=== PATIENT | female | born 2000 | race Caucasian/White ===

== ENCOUNTER 2021-03-01 09:57 | Outpatient (RCR) | payer BC, SELFPAY ==
--- NOTE | 2021-03-01 10:15 | BH.SGPN.GN ---
Behaviors/Verbalizations/Mental Status: []Client alert and oriented, casually dressed and groomed. Eye contact good. Motor activity appropriate. Speech within normal limits. Affect congruent, mood dysthymic. Thoughts linear, logical, no signs of hallucinations or delusions. Client Response/Progress/Benefit: []Client was an engaged participant AEB listening attentively to others, taking notes, and staying engaged with group activity. Connected with the topic of pitfalls and helped the group discuss barriers that keep them from choosing a healthier path to mental wellness such as pitfalls. Group worked together to identify examples of personal pitfalls which included; avoidance behaviors, self-comparison, isolation, personalizing, catastrophizing, all or nothing thinking, and not meeting high expectations. Client benefited from group with increased understanding of impact personal pitfalls can have on mental health. Client's first day in IOP. Client will continue IOP to increase healthy coping skills, improve daily functioning and prevent decompensation.
--- NOTE | 2021-03-01 11:15 | BH.SGPN.GN ---
Behaviors/Verbalizations/Mental Status: []Client alert and oriented, neatly dressed and groomed. Eye contact good. Motor activity appropriate. Speech within normal limits. Affect constricted, mood anxious and depressed. Thoughts linear, logical, no signs of hallucinations or delusions Client Response/Progress/Benefit: []Client receptive of session, engaged throughout AEB client actively listening and contributing to discussion, as well as taking notes. Client completed worksheet identifying personal pitfalls impacting mental health progress. Client identified the following pitfalls: no self-recognition, seeking external validation too much, inappropriate guilt, and emotional reactivity. Group learned different coping skills to help manage pitfalls. Client selected no self-recognition as the pitfall client wants to overcome. Client plans to work on this by keeping track of small daily wins and reflecting on larger accomplishments she had in life. Benefited from identifying personal pitfalls and strategies to overcome these pitfalls. Will continue IOP tx to prevent decompensation, increase emotional regulation skills, and reduce negative thinking patterns. Narrative Note: []
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
--- NOTE | 2021-03-01 14:38 | BH.MTP ---
Master Treatment Plan - Patient Information Program Physician:: Dr. Kelly Sanford Primary Therapist:: BECKA Higgins - Psychiatric Diagnoses Psychiatric Diagnoses:: 1. Major depressive disorder, recurrent, severe without psychosis. 2. Attention deficit disorder Diagnosis Code(s):: F 33.2 - Estimated LOS Estimated LOS (in weeks):: 6 Problem/Goal #1 - Problem/Goal #1 Stated Goal:: Client will reduce depressive symptoms, feelings of hopelessness/worthlessness, apathy, and low energy due to Major Depressive Disorder through Intensive Outpatient Program. Description of Barriers: Poor support at home, distorted thinking patterns, and self-report of reassurance seeing behaviors may impact ability to make consistent progress in tx Functional Impact: The patient is a 20-year-old female with a history of ADHD who was referred to the [facility] behavioral health IOP program by a friend who previously completed the program. The patient is currently living at home with her parents after she dropped out of college where she had been a freshman majoring in media production. The patient says she took a semester off from college due to worsening symptoms of depression causing an inability to function well at school or at home. 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 Reports that acknowledging her childhood trauma has been the primary catalyst for a majority of her mental health sx and increased difficulties in functioning t baseline. Reports she has attempted to process this with her parents who have been unreceptive. The patient called the crisis line 2 weeks ago because she had suicidal ideation. She said her grades were dropping because she had stopped doing homework and attending class. At time of admission, pt endorsing sadness, crying spells, low motivation and concentration, apathy, anhedonia, hopelessness, purposelessness, and worthlessness, as well as decreased appetite. Reports increased anxiety about the future as well as poor relationships with supports. Reports current sx are impeding ability to function at baseline, complete social, occupational, and educational responsibilities. - Objectives Objective #1 Stated Objective: Client will identify 2-3 cognitive distortions that lead to mood dysregulation and learn 2-3 ways to manage these thoughts to improve mood stability. Interventions: Therapist will assist client in identifying, challenging, and replacing dysfunctional thoughts with positive, more realistic thoughts. Therapist will use CBT and DBT techniques to help client gain awareness of thinking errors and learn how to more effectively handle negative thoughts that reinforce unhealthy coping skills. Discharge Criteria: Client will report reduced depression and improved self-talk by identifying at least 2 distortions that reinforce negative thinking, as well as implement at least 2 strategies to challenge and replace these distorted thoughts. Target Date: 04/12/21 Review Date: 03/29/21 Objective #2 Stated Objective: Client will learn and utilize 2-3 healthy coping strategies to better manage depressive and mood symptoms as shown by reduced DSM-5 scores. Interventions: Through group and individual sessions, therapist will help client identify triggers and warning signs of depression and emotional dysregulation including emotional, physical, and behavioral changes. Therapist will teach client various coping skills to manage symptoms and give tangible resources to use to regulate emotions. Therapist will use cognitive restructuring techniques and help client gain awareness of negative thoughts that reinforce depressive cycles. Discharge Criteria: Pt will be able to identify at least 2 warning signs/triggers for mood dysregulation and consistently apply at least 2 healthy coping skills for improved mood stability and reduction in depression. Target Date: 04/12/21 Review Date: 03/29/21 Problem/Goal #2 - Problem/Goal #2 Stated Goal:: Stabilize anxiety level while increasing ability to function on daily basis AEB by reduction in DSM 5 Cross-cutting outcome measurement through Intensive Outpatient Services. Description of Barriers: Poor support at home, distorted thinking patterns, and self-report of reassurance seeing behaviors may impact ability to make consistent progress in tx Functional Impact: The patient is a 20-year-old female with a history of ADHD who was referred to the [facility] behavioral health IOP program by a friend who previously completed the program. The patient is currently living at home with her parents after she dropped out of college where she had been a freshman majoring in media production. The patient says she took a semester off from college due to worsening symptoms of depression causing an inability to function well at school or at home. 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 Reports that acknowledging her childhood trauma has been the primary catalyst for a majority of her mental health sx and increased difficulties in functioning t baseline. Reports she has attempted to process this with her parents who have been unreceptive. The patient called the crisis line 2 weeks ago because she had suicidal ideation. She said her grades were dropping because she had stopped doing homework and attending class. At time of admission, pt endorsing sadness, crying spells, low motivation and concentration, apathy, anhedonia, hopelessness, purposelessness, and worthlessness, as well as decreased appetite. Reports increased anxiety about the future as well as poor relationships with supports. Reports current sx are impeding ability to function at baseline, complete social, occupational, and educational responsibilities. - Objectives Objective #1 Stated Objective: Client will identify 2-3 cognitive distortions that lead to rumination and learn 2-3 ways to manage these thoughts to better manage anxiety Interventions: Through individual and group counseling will provide education on the most common cognitive distortions and teach client the connection between thoughts, emotions, and feelings. Therapist will assist client in identifying, challenging, and replacing dysfunctional thoughts with positive, more realistic thoughts. Discharge Criteria: Will be able to identify 2-3 frequently used cognitive distortions and ways to challenge or reframe . Target Date: 04/12/21 Review Date: 03/29/21 Objective #2 Stated Objective: Pt will decrease anxious symptoms AEB pt?s score on the DSM 5 cross-cutting measure improve pt?s daily functioning. Interventions: Through groups and individual therapy, pt will be provided education about anxiety?s impact on body and common physiological reaction to anxiety. Therapist will teach pt appropriate breathing techniques and build healthy coping skills to manage daily anxieties. Aid client in identifying and challenging distorted thoughts that cause rumination and increased anxiety. Discharge Criteria: Pt will have met this goal when pt?s score on the DSM 5 cross cutting measure for anxiety has been decreased and per pt?s report daily functioning has improved. Target Date: 04/12/21 Review Date: 03/29/21
--- NOTE | 2021-03-02 09:05 | BH.SGPN.GN ---
Behaviors/Verbalizations/Mental Status: []Eye contact is good. Motor activity is appropriate. Appearance is casual. Speech is appropriate. Mood is anxious. Affect is congruent. Thoughts are linear and logical. No evidence of psychosis. Reviewed daily symptom tracker sheet with no reports of suicidal ideations, plan, or intent. Client Response/Progress/Benefit: []Client was engaged throughout group session. Client reported a stressor of moving home from college and back home with her parents. Shared her parents are not as supportive as her friends back at school. Client appeared to benefit from group discussion regarding acceptance and coping with unsupportive supports. Client identified the benefits of moving home, as it will allow her to focus on herself. Will continue IOP treatment to increase depression management skills to aid client in increasing functioning. Narrative Note: []
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
--- NOTE | 2021-03-02 10:10 | BH.SGPN.GN ---
Behaviors/Verbalizations/Mental Status: []Client alert and oriented, casually dressed and groomed. Eye contact good. Motor activity appropriate. Speech within normal limits. Affect constricted, mood dysthymic. Thoughts linear, logical, no signs of hallucinations or delusions. Client Response/Progress/Benefit: []Client engaged during session AEB client contributing thoughts throughout discussion and completing worksheet. Connected with discussion on crisis and how coping with external crises by using unhealthy coping skills could result in a personal crisis. Able to give examples of unhealthy coping skills people use to manage crisis. Group reflected on the importance of having awareness of personal warning signs to prevent reaching crisis point. Group identified potential warning signs for crisis and client completed the personal warning signs worksheet. Client identified personal crisis warning signs to include: unusual drop in functioning, loss of interest, and feeling disconnected. Client benefited by increasing awareness of what leads to crisis and personal warning signs. Client will continue IOP tx to prevent decompensation, improve emotional regulation skills, and improve daily functioning. Narrative Note: []
--- NOTE | 2021-03-02 11:10 | BH.SGPN.GN ---
Behaviors/Verbalizations/Mental Status: []Client alert and oriented, casually dressed and groomed. Eye contact fair. Motor activity appropriate. Speech within normal limits. Affect constricted. Mood dysthymic. Thoughts linear, logical, no signs of hallucinations or delusions. Client Response/Progress/Benefit: []Client responded well to session as evidenced by client listening attentively to others and providing strategies during discussion. Client identified her warning signs for crisis and gained further awareness of earliest warning signs. Client created a crisis action plan to help client better manage warning signs for crisis. Client?s action plan for unusual drop in functioning included: setting small goals about cleaning sections of her room, use opposite action to get out of bed, set realistic expectations and identify wins. Client appeared to benefit from creating a crisis action plan and increasing self-awareness. Client to continue IOP tx to increase healthy coping, improve daily functioning and prevent decompensation.
[2021-03-02 12:05] VITALS: BP 129/84; PULSE 64
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
--- NOTE | 2021-03-02 13:12 | BH.DR.ITP ---
Initial Treatment Plan Patient Information Visit Information: ADMISSION DATE: EXPECTED LOS: 4-6 weeks Problems/Symptoms Problem #1:: Depression Symptom:: Sadness, anhedonia, biological disruption of sleep and appetite, low energy, decreased concentration, hopelessness, worthlessness, passive thoughts of Problem #2:: Anxiety Symptom:: Worry, rumination
--- NOTE | 2021-03-03 09:00 | BH.SGPN.GN ---
Behaviors/Verbalizations/Mental Status: []Pt eye contact fair, casually dressed, motor activity appropriate, speech normal rate and tone, mood euthymic, congruent affect, thoughts linear and intact, no evidence of delusions or hallucinations. Reviewed client?s symptom tracker, no signs of suicidal ideation, plan, or intent as of today. Client Response/Progress/Benefit: [] Pt responded well to session AEB listening attentively to group, providing feedback and sharing thoughts and feelings. Pt stated yesterday was stressful because she catastrophized that she had covid due to having a cough. Pt stated she reached out to her father for help, asking him to get her a covid test. Pt reported her father was being pushy and wouldn't get the test until she did what he wanted. Pt stated a mental health win was being able to refrain from responding negatively to her father. Pt reported she did get a covid test and it was negative. Pt recognizes she was likely catastrophizing because she was worried she'd have to cancel her trip to [place]. Pt identified positive as going to [place] for the next 5 days for a friend's wedding. Pt seemed to benefit from support from peers. Pt to continue IOP to increase healthy coping, challenge distorted thoughts and prevent decompensation. Narrative Note: []
--- NOTE | 2021-03-03 10:06 | BH.SGPN.GN ---
Behaviors/Verbalizations/Mental Status: []Eye contact is good. Motor activity is appropriate. Appearance is casual. Speech is Appropriate. Mood is euthymic. Affect is flat. Thoughts are linear and logical. No evidence of psychosis Client Response/Progress/Benefit: []Pt was a passive participant in group discussion, mostly taking notes and attentively listening. Participated in a short activity about automatic thoughts and shared that mood and past experiences can impact automatic thoughts. Group was primarily educational; therapist introduced and gave examples of the most common cognitive distortions. Benefited from education and increased awareness of cognitive distortions and the role that they play our behaviors and emotions. Pt reported connecting with distortions such as all or nothing thinking, shoulds, and mind-reading. Will continue IOP tx to prevent decompensation, improve emotional regulation skills, and increase mood stability. Narrative Note: []
--- NOTE | 2021-03-03 11:16 | BH.SGPN.GN ---
Behaviors/Verbalizations/Mental Status: []Eye contact is good. Motor activity is appropriate. Appearance is casual. Speech is Appropriate. Mood is depressed, anxious. Affect is congruent. Thoughts are linear and logical. No evidence of psychosis. Client Response/Progress/Benefit: []Pt was an active participant, taking notes and providing input throughout group discussion and activity. Attentive during psychoeducation on cognitive distortions not discussed in previous group and shared several examples of distortions she struggles with. Pt indicated connecting with distortions of disqualifying the positives, personalization, and overgeneralization. Shared personal example of stuggling with should statements and connected this to increased pressure she places on herself. Pt was an actively engaged participant in Cognitive Distortions Jeopardy, providing some input and suggestions to small group. Utilized notes from psychoeducation on cognitive distortions to assist peers in correctly answering questions. Expressed benefitting from challenging herself to better identify the distortions in the moment. Experiential activity was beneficial as it provided a way for patient to review notes and handouts during psychoeducation to answer questions for the game. Will continue in [facility] tx to further improve understanding of mental health symptoms and healthy coping skills for better management of symptoms, reduce depression and avoidance, and further improve ability to manage stressors impacting ability to function at baseline. Narrative Note: []
--- NOTE | 2021-03-08 09:05 | BH.SGPN.GN ---
Behaviors/Verbalizations/Mental Status: [] Eye contact is good. Motor activity is appropriate. Appearance is casual. Speech is Appropriate. Mood is euthymic. Affect is full. Thoughts are linear and logical. No evidence of psychosis. Reviewed daily check in sheet and no reports of suicidal ideations or intent Client Response/Progress/Benefit: [] Pt was an active participant in group discussion. Attentive. Daily symptom tracker notes 5 for depression and 2/5 for anxiety. Emotion for today is thankful. Mental health wins included managing anxiety and stress related to recent trip. Went to a wedding over the weekend which required her to fly. Overall she managed the anxiety well and found the wedding to be beneficial to her mental health. Continued conflict with her parents and overall depression continue to impact functioning. She holds strong resentments towards her parents and their previous actions and believes they are unwilling to acknowledge how their actions impacted her. Patient states i want to hug and connect with my mom however its hard. This is significantly impacting her depression and causing daily rumination. All I think about is my mental health. Progress noted over the weekend. Benefited from group support, encouragment, and feedback. Will continue in IOP to maintain safety, increase health coping, and prevent decompensation. Narrative Note: []
--- NOTE | 2021-03-08 10:20 | BH.SGPN.GN ---
Behaviors/Verbalizations/Mental Status: []Client alert and oriented, disheveled appearance. Eye contact good. Motor activity appropriate. Speech within normal limits. Affect constricted, mood calm. Thoughts linear, logical, no signs of hallucinations or delusions. Client Response/Progress/Benefit: []Pt was an active participant in group discussions and activity. Attentive during psychoeducation. Along with peers provided insight into topics discussed which included; What is social support? Why is social support important? What are the benefits of using our supports? How does a lack of strong social supports impact our mental health and symptom management? Pt reported having a healthy support system can help a person celebrate wins, but pt reports she struggles when ?my brain tells me I don?t need support.? Participated in activity and was able to connect the activity to the topic of creating and maintaining a balance of social supports. Benefited from increased awareness of the benefits to a balanced social support and barriers to utilizing social support. Progress noted in pt?s consistent attendance. Will continue in IOP to prevent decompensation, improve emotional regulation skills, and learn how to manage ongoing stressors in healthier ways. Narrative Note: []
--- NOTE | 2021-03-08 11:18 | BH.SGPN.GN ---
Behaviors/Verbalizations/Mental Status: []Client alert and oriented, casually dressed and groomed. Eye contact good. Motor activity appropriate. Speech within normal limits. Affect congruent, mood anxious, depressed. Thoughts linear, logical, no signs of hallucinations or delusions. Client Response/Progress/Benefit: []Client remained an active participant throughout AEB contributing to discussion, providing supportive feedback, and taking notes throughout. Client participated in the group activity highlighting the various barriers to effectively utilizing supports and strategies for improving support. Participated in discussion of the 5 ways our supports can support us (emotional, tangible, affirmational, network/belonging, and instructional) and the group listed examples for all types. Discussed realizing she had previously expected her support people to provide her with each of the types of support rather than asking for specific types of support from different support people. Client reports wanting to work on increasing social supports, noting this will help her engage in activities she enjoys as well as feel more of a part of a community. Client plans to do this by choosing a show to audition for [place] [employer]. Client seemed to benefit from identifying the type of support and how this support will aid in promoting overall mental wellness. Will continue with IOP tx to promote healthy communication and boundaries with supports, improve self-compassion, and prevent decompensation. Narrative Note: []
--- NOTE | 2021-03-09 10:10 | BH.SGPN.GN ---
Behaviors/Verbalizations/Mental Status: [] Eye contact is good. Motor activity is appropriate. Appearance is casual. Speech is Appropriate. Mood is anxious. Affect is congruent. Thoughts are linear and logical. No evidence of psychosis. Client Response/Progress/Benefit: [] Pt was an active participant in group discussion and activity. Attentive during psychoeducation. Pt participated in interactive group discussion in which group defined fixed mindset and provided insight on how a fixed mindset could impact mental health and result in; being closed to new possibilities, focusing only on how things are unfair, could lead to helplessness, could lead to feelings of not being in control, could cause one to feel like a failure, and could cause one to ignore any success. Interacted and worked well with peers in small group. Fixed mindset thoughts that were overheard during activity included; This won't work, this didn't work before, I don't think this matters, Its hard. I'm nervous, this sucks, this is impossible, I'm not good at this, we will fail. Benefited from increased awareness on the role of fixed mindset on mental health. Will continue in IOP to prevent decompensation, increase healthy coping, and improve functioning to return to school. Narrative Note: []
--- NOTE | 2021-03-09 15:33 | BH.MDN ---
Multi-Disciplinary Note - Note 60-min Individual Time Started:: 10:54 Date: 03/09/21 Purpose of session/treatment goals addressed:: To work on goal #1 of client's tx plan. Another goal was to introduce self-care wheel and begin exploring current engagement in interests, hobbies, and other areas of self-care. Eye Contact:: Good Motor Activity:: Appropriate Appearance:: Neat, Casual Speech:: Appropriate Mood:: Anxious, Depressed Affect:: Congruent Thoughts:: Linear, Logical, No evidence of hallucinations/delusions noted Staff Interventions:: thought challenging, motivational interviewing - to identify small self-care goals and barriers, psychoeducation on: - various types of social support roles. Types of self-care, strengths perspective, goal setting - identified two small self-care goals, other - discussed importance of healthy communication when establishing boundaries Client Response:: Client responded well to session, open to meeting with therapist. Client shared she finds the treatment environment to be supportive and has been helping her in improving her ability to self-reflect and gain additional insight into her mental health symptoms and warning signs. Spoke at length about continuing to struggle with obtaining the appropriate level of emotional support in her current environment. Reflected that her expectations of emotional support from her parents may not be what they are capable or willing to provide at this time and gave insight that they can still be supports in other ways. Noted her parents can still provide tangible and networking support. Discussed plans to spend time with her mother this week and would like to establish boundaries to not discuss client?s mental health as she feels this is often a topic often resulting in disagreements and increased tension. Indicated that boundaries have been difficult to establish with her parents in the past as they often become defensive or upset when client attempts to do so. Able to identify alternative sources of emotional support, indicating that her best friend could be a healthy support if she establishes the boundary of having her support not try to ?fix it? or make comparisons to her own experiences when client brings things up to process. Went on to discuss with this therapist the role of herself as an internal support and the importance of self-care in promoting mental health wellness. Client receptive of reviewing the various areas of self-care as described on the ?self-care wheel? and indicated beliefs she is doing well in the area of social self-care. Identified struggling in the various other areas, specifically basic personal hygiene type self-care and engaging in activities she used to enjoy. Discussed wanting to start with the basics by becoming more consistent with washing her face daily and eating healthier meals. 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 Client noted that she is worried the musical will be a trauma trigger for her as it discusses parent/child relationships. Client able to identify that first watching the musical to gain a better understanding of the potential topics would help better inform her decision and reports plans to do so as homework. Risks/Concerns:: None noted, denies any suicidal ideation, plan, or intent as of this date. Progress Toward Goals/Plan:: Client continues to make progress in improving her ability to better understand her personal mental health symptoms and goals. Discussed goals for her relationship with parents as this has been an ongoing trigger and client noted that she may need to work on improved personal acceptance. Discussed ongoing difficulties with her parents not acknowledging client?s trauma. Reports improved socialization with friends but continues to struggle in other areas of self-care. Reports wanting to work on improving her engagement with activities and hobbies she used to find enjoyable. Will continue IOP tx to prevent decompensation, increase application of healthy coping skills, improve self-talk, and boundary setting, as well as continue to improve functioning. Time Stopped:: 11:54
--- NOTE | 2021-03-10 09:08 | BH.SGPN.GN ---
Behaviors/Verbalizations/Mental Status: []Client alert and oriented, casually dressed and groomed. Eye contact good. Motor activity appropriate. Speech within normal limits. Affect congruent, mood euthymic. Thoughts linear, logical, no signs of hallucinations or delusions. Reviewed client?s symptom tracker, denies any suicidal ideation, plan, or intent as of 03/10/21. Future oriented Client responded well to session, attentive and providing supportive feedback throughout. Client reports feeling proud this morning as she was able to accomplish several small self-care goals in the past day. Discussed making efforts to complete small tasks such as wash her face and hand a picture in her room. Noted these are things she typically would put off. Additionally, discussed a win of communicating her emotional support needs and boundaries with a close friend. Noting this had been anxiety provoking but a positive experience. Expressed that she can use this as motivation to communicate conversation boundaries with her mother as they have plans to spend the day together tomorrow. Client progress noted in improved insight into her own support needs. Continued IOP tx recommended to improve consistency of boundaries, continue to promote application of self-care activities, and prevent decompensation. Client Response/Progress/Benefit: [] Narrative Note: []
--- NOTE | 2021-03-10 10:10 | BH.SGPN.GN ---
Behaviors/Verbalizations/Mental Status: [] Eye contact is good. Motor activity is appropriate. Appearance is casual. Speech is Appropriate. Mood is euthymic. Affect is full. Thoughts are linear and logical. No evidence of psychosis. Client Response/Progress/Benefit: [] Pt was an active participant in group activity. Attentive during psychoeducation. Participated in interactive discussion on celebrities who overcame failures to decrease stigma associated with failure. Group then worked together to identify the impact of FOF which can lead to; feeling as if they are not enough, can cause apprehension about trying new things, can lead to staying in toxic and unhealthy situations, self-sabotage, keep one stuck, and prolonged suffering. Pt also participated in and provided insight on what causes or leads to FOF which included; expectations, family dynamics, the environment, status, and our view of ourself. Benefited from increased awareness of the role of FOF on mental health and decision-making. Will continue in IOP to improve functioning to return to school and increase healthy coping skills. Narrative Note: []
--- NOTE | 2021-03-10 11:15 | BH.SGPN.GN ---
Behaviors/Verbalizations/Mental Status: []Client alert and oriented, casually dressed and groomed. Eye contact good. Motor activity appropriate. Speech within normal limits. Affect congruent, mood euthymic. Thoughts linear, logical, no signs of hallucinations or delusions. Client Response/Progress/Benefit: []Client responded well to session, engaged in the experiential activity and attentive throughout group processing. 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 Client able to identify thoughts and behaviors that reinforce personal fear of failure which included: not feeling good enough, not addressing trauma, toxic relationships, and dwelling on the past. Client attentive during discussion of the different strategies to help overcome fear of failure. Identified wanting to work on overcoming not feeling like enough by using opposite action and auditioning for the performance she has been considering. Appeared to benefit from gaining self-awareness and learning strategies to overcome fear of failure. Client will continue IOP tx to improve emotional regulation skills, increase knowledge of healthy coping skills, reduce negative self-talk. Narrative Note: []
== END 2021-03-13 23:59 ==
LOC: BHIOP 09:57
PROVIDERS: Referring Provider Psychiatry & Neurology Psychiatry; Visit Provider Psychiatry & Neurology Psychiatry
DX: F33.2 Major depressive disorder, recurrent severe without psychotic features (principal); F98.8 Other specified behavioral and emotional disorders with onset usually occurring in childhood and adolescence; Z79.899 Other long term (current) drug therapy; Z62.810 Personal history of physical and sexual abuse in childhood; Z62.811 Personal history of psychological abuse in childhood
CPT/HCPCS: S9480; 90834; 90837; 90853

== ENCOUNTER 2021-03-14 09:00 | Outpatient (RCR) | payer BC, SELFPAY ==
[2021-03-14 00:34] VITALS: BP 129/84; PULSE 64
--- NOTE | 2021-03-14 09:00 | BH.SGPN.GN ---
Behaviors/Verbalizations/Mental Status: [] Eye contact is good. Motor activity is appropriate. Appearance is casual. Speech is appropriate. Mood is depressed. Affect is flat. Thoughts are linear and logical. No evidence of psychosis. Reviewed daily symptom tracker sheet with no reports of suicidal ideations, plan, or intent. Client Response/Progress/Benefit: [] Client was engaged throughout group session. Client reported her emotion of the day as ?empty?. 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 be. Client reported reaching out to her support system to cope with these feelings. Client reported being happy and proud with photos that she took and finished editing for a friend for . Progress noted AEB client reporting reaching out to support system, but client continues to report difficulty challenging negative thoughts. Will continue IOP treatment to increase depression management skills to increase client functioning. Narrative Note: []
--- NOTE | 2021-03-14 10:10 | BH.SGPN.GN ---
Behaviors/Verbalizations/Mental Status: []Client alert and oriented, casually dressed and groomed. Eye contact good. Motor activity appropriate. Speech within normal limits. Affect constricted, mood dysthymic. Thoughts linear, logical, no signs of hallucinations or delusions. Client Response/Progress/Benefit: [] Client engaged in session AEB taking notes, contributing to discussion, and providing examples throughout. Client assisted group with identifying benefits of setting boundaries such as improved relationships, reduced anxiety, increased sense of self-respect, and feeling validated. Listened during psychoeducation on different types of boundaries. Client stated struggles with time boundaries, often being late to things. Client seemed to benefit from increased awareness of how boundaries impact mental health and the different types of boundaries there are. Will continue IOP tx improve emotional regulation, challenge distorted thoughts and prevent decompensation.
--- NOTE | 2021-03-14 11:10 | BH.SGPN.GN ---
Behaviors/Verbalizations/Mental Status: []Client alert and oriented, casually dressed and groomed. Eye contact good. Motor activity appropriate. Speech within normal limits. Affect constricted, mood dysthymic. Thoughts linear, logical, no signs of hallucinations or delusions. Client Response/Progress/Benefit: []Client responded well to session AEB listening attentively to peers and providing input. Client engaged in the boundary self-assessment and was attentive during psychoeducation on the different boundary styles. Client stated on the self-assessment she identified she can never say no to others. Client stated she is a people pleaser and also has a fear of missing out so will say yes to things even if not truly interested in event/activity. Able to connect how porous boundaries negatively impact mental health. Client was given a handout on strategies for healthy boundary setting. Will continue IOP tx to improve ability to manage stressful events, challenge distorted thoughts and prevent decompensation.
--- NOTE | 2021-03-15 09:05 | BH.SGPN.GN ---
Behaviors/Verbalizations/Mental Status: [] Eye contact is good. Motor activity is appropriate. Appearance is casual. Speech is Appropriate. Mood is depressed. Affect is flat. Thoughts are linear and logical. No evidence of psychosis. Reviewed daily check in sheet and no reports of suicidal ideations or intent. Client Response/Progress/Benefit: [] Pt was an active participant in group discussion. Attentive. Provided appropriate feedback. Daily symptom tracker notes /5 for depression and 2/5 for anxiety. Emotion for today is unhappy. Tearful at times. Shared I had a difficult day yesterday. Reports that after group on boundaries she has increase awareness which was troubling to her. Insight that awareness is important for change however this led to feeling depressed and urge to isolate. She utilized some mindfulness and acceptance of her emotions, however continue to isolate. Support was helpful and took her out for ice cream which she reports was perfect at that time. She continues to ruminate on her conflict and relationship with her mother stating that she wants a better relationship however cannot get over certain things. Benefited from group support, encouragement, and feedback. Will continue in IOP to prevent decompensation, increase healthy coping, and improving functioning to return to work. Narrative Note: []
--- NOTE | 2021-03-15 10:15 | BH.SGPN.GN ---
Behaviors/Verbalizations/Mental Status: []Client alert and oriented, casually dressed and groomed. Eye contact good. Motor activity appropriate. Speech within normal limits. Affect constricted, mood depressed. Thoughts linear, logical, no signs of hallucinations or delusions. Client Response/Progress/Benefit: []Pt was well engaged in group AEB taking notes, providing input occasionally, and listening attentively throughout. Attentive during psychoeducation and discussed the importance of goal-setting with the group. Group identified potential benefits of having goals to include: to better oneself, increase self-confidence, improve relationships, create better boundaries, and improve mental health. Group also worked together to identify barriers to goal-setting which included; self-doubt, fear of failure, fear of success, and lack of motivation. Pt reported she struggles with fear of failure, fear of success, and negative self-talk. However, pt states she has been working on ?treating my relationship with myself like I would treat any other relationship? and this has helped pt challenge negative self-talk. Benefited from increased awareness of benefits and barriers to goal-setting. Will continue IOP tx to increase mood stability, reduce impulsivity, and gain healthy coping skills. Narrative Note: []
--- NOTE | 2021-03-15 11:18 | BH.SGPN.GN ---
Behaviors/Verbalizations/Mental Status: [] Client alert and oriented, casually dressed and groomed. Eye contact good. Motor activity appropriate. Speech within normal limits. Affect congruent, mood anxious and dysthymic. Thoughts linear, logical, no signs of hallucinations or delusions. Client Response/Progress/Benefit: []Pt was an active participant in group discussions and activities. Engaged in activity. Pt identified a SMART goal for the next week is to: track at least five accomplishments a day for the next week. Pt reported this would benefit her mental health by: encourage me to give myself more credit and help motivate me to finish small tasks. Identified no motivation as a potential barrier to completing this goal. Pt able to identify several solutions that can help overcome identified barriers. Benefited from group by being able to utilize SMART educate to create a goal. Pt to continue IOP to stabilize mood, increase utilization of healthy coping and self-care, as well as prevent decompensation. Narrative Note: []
--- NOTE | 2021-03-15 15:17 | BH.MDN_ITS ---
Multi-Disciplinary Note - Note 60-min Individual Time Started:: 10:54 Date: 03/09/21 Eye Contact:: Good Motor Activity:: Appropriate Appearance:: Neat, Casual Speech:: Appropriate Mood:: Anxious Affect:: Congruent Thoughts:: Linear, Logical, No evidence of hallucinations/delusions noted Staff Interventions:: thought challenging, motivational interviewing - to identify small self-care goals, psychoeducation on: - various types of social support roles. Types of self-care, strengths perspective, goal setting - identified two small self-care goals, other - discussed importance of healthy communication when establishing boundaries Client Response:: Client responded well to session, open to meeting with therapist. Client shared she finds the treatment environment to be supportive and has been helping her in improving her ability to self-reflect and gain additional insight into her mental health symptoms and warning signs. Spoke at length about continuing to struggle with obtaining the appropriate level of emotional support in her current environment. Reflected that her expectations of emotional support from her parents may not be what they are capable or willing to provide at this time and gave insight that they can still be supports in [facility] ways. Noted her parents can still provide tangible and networking support. Discussed plans to spend time with her mother this week and would like to establish boundaries to not discuss client?s mental health as she feels this is often a topic often resulting in disagreements and increased tension. Indicated that boundaries have been difficult to establish with her parents in the past as they often become defensive or upset when client attempts to do so. Able to identify alternative sources of emotional support, indicating that her best friend could be a healthy support if she establishes the boundary of having her support not try to ?fix it? or make comparisons to her own experiences when client brings things up to process. Went on to discuss with this therapist the role of herself as an internal support and the importance of self-care in promoting mental health wellness. Client receptive of reviewing the various areas of self-care as described on the ?self-care wheel? and indicated beliefs she is doing well in the area of social self-care. Identified struggling in the various other areas, specifically basic personal hygiene type self-care and engaging in activities she used to enjoy. Discussed wanting to start with the basics by becoming more consistent with washing her face daily and eating healthier meals. 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 Client noted that she is worried the musical will be a trauma trigger for her as it discusses parent/child relationships. Client able to identify that first watching the musical to gain a better understanding of the potential topics would help better inform her decision and reports plans to do so as homework. Risks/Concerns:: None noted, denies any suicidal ideation, plan, or intent as of this date. Progress Toward Goals/Plan:: Client continues to make progress in improving her ability to better understand her personal mental health symptoms and goals. Discussed goals for her relationship with parents as this has been an ongoing trigger and client noted that she may need to work on improved personal acceptance. Discussed ongoing difficulties with her parents not acknowledging client?s trauma. Reports improved socialization with friends but continues to struggle in other areas of self-care. Reports wanting to work on improving her engagement with activities and hobbies she used to find enjoyable. Will continue IOP tx to prevent decompensation, increase application of healthy coping skills, improve self-talk, and boundary setting, as well as continue to improve functioning. Time Stopped:: 11:54
--- NOTE | 2021-03-16 09:01 | BH.SGPN.GN ---
Behaviors/Verbalizations/Mental Status: []Eye contact is good. Motor activity is appropriate. Appearance is casual. Speech is Appropriate. Mood is dysthymic. Affect is constricted. Thoughts are linear and logical. No evidence of psychosis. Reviewed daily check in sheet and no reports of suicidal ideations or intent. Client Response/Progress/Benefit: []Pt responded well to session AEB pt sharing thoughts and feelings and listening attentively to others. Pt stated she is having a rough day. Pt reported yesterday she accomplished her goal from group of scheduling appointments she had been avoiding for a long time. Pt reported she was very proud of herself and told her dad about her accomplishments. Pt stated her dad crushed me when he told her that making appointments wasn't a hard thing. Pt expressed frustration that she was trying to connect with her dad but was let down. Pt stated she did go visit her best friend which helped improve her mood. Progress could be hindered by pt's mood dependent on external situations. Pt to continue IOP to improve daily functioning, challenge distorted thoughts and prevent decompensation. Narrative Note: []
--- NOTE | 2021-03-16 09:06 | BH.MDN_ITS ---
Multi-Disciplinary Note - Note 60-min Individual Time Started:: 11:35 Date: 03/16/21 Purpose of session/treatment goals addressed:: To work on goal #1 and #2 of client's tx plan. Another goal was to aid client in identifying strategies for improving communication with her parents Eye Contact:: Good Motor Activity:: Appropriate Appearance:: Casual Speech:: Appropriate Mood:: Depressed Affect:: Congruent Thoughts:: Linear, Logical, No evidence of hallucinations/delusions noted Staff Interventions:: thought challenging, psychoeducation on: - types of trauma, CBT techniques - behavior chain analysis, strengths perspective, taught coping skills - healthy communication skills Client Response:: Client responded well to session, open to meeting with therapist and engaged throughout. Client shared she feels ?mehh? today, expla ining that she has felt disappointed since having an upsetting interaction with her father the previous date. Discussed attempting to share an accomplishment with her father and feeling dismissed and invalidated as a result. Open to completing a behavior chain analysis regarding the interaction and events surrounding it. Client able to recognize that in her determination to complete the goal she had set, she had ignored her mother?s request to put away laundry and had not communicated why. Additionally, identified lack of communication with her father regarding why she had been sharing that she had scheduled several appointments for herself. Client receptive of discussion regarding importance of effective communication with supports and how to communicate support needs with them. Client shared she continues to struggle with trusting her parents as she feels they do not understand mental health or acknowledge the role they have had in client?s trauma history. Able to identify that her s upports may not be able to fully understand or accept client?s mental health symptoms, but that they can still play a role in providing support. Therapist discussed the benefits of having a family session to further discuss client mental health experience and needs in order to advocate for the support she believes will be most helpful. Reports not feeling comfortable or ready to open up that much to her parents about her mental health but would like to begin making steps towards doing so. Shared wanting to be able to communicate with her parents about her day in IOP treatment by letting them know if it was an ?eye- opening? or ?rough? day. However, notes fear that they will pry for further information. Discussed strategies for establishing and communicating boundaries. Reports plans to pick-up one of the family?s favorite dishes from a local restaurant and discuss this with her parents this afternoon. Risks/Concerns:: None noted, denies any suicidal ideation, plan, or intent as of this date. Progress Toward Goals/Plan:: Client continues to make progress in improving her levels of insight into her mental health. Additionally, reports improved use of small goal setting and is beginning to track daily accomplishments. Client reports continued depression, anxiety, and irritability primarily when interacting with her parents. Shares that this relationship continues to be strained and that client has been struggled with communicating with them. Continues to struggle with self care and feeling she does not know who she is. Has been making some strides to get back into activities she enjoys. Will continue IOP tx to prevent decompensation, increase application of healthy coping skills, improve communication with supports, as well as continue to improve functioning. Time Stopped:: 12:34
--- NOTE | 2021-03-16 10:10 | BH.SGPN.GN ---
Behaviors/Verbalizations/Mental Status: []Eye contact is fair to good. Motor activity is appropriate. Appearance is casual. Speech is Appropriate. Mood is dysthymic, agitated. Affect is constricted. Thoughts are linear and logical. No evidence of psychosis Client Response/Progress/Benefit: []Pt was an attentive participant in group discussion AEB taking notes, however remaining mostly passive throughout. More engaged within small group discussion setting. Attentive during psychoeducation on Conflict Styles ( Avoidant, Competing, Accommodating, and Collaborating). Participated in interactive group discussion on benefits of conflict.? Pt along with peers identified several reasons conflict is often avoided which included; anxiety, fear of other?s reaction, not wanting to face additional conflict, and negative past experiences. Pt reported that she believe she was taught to be accommodating most of her life which has resulted in now being overly competing or avoidant at times. Shared this has resulted in additional conflicts with her parents. Benefited from increased awareness on conflict styles. Will continue in IOP to promote mood stability, increase the use of healthy communication with supports and boundary setting, reduce negative self-talk, and improve functioning. Narrative Note: []
--- NOTE | 2021-03-16 11:43 | PCM.BH.PN_ITS ---
Progress Note Progress Note: History of Present Illness/Interim History: [] The patient is a 20-year-old single female with a history of ADHD and depression who is seen in follow-up at the [facility] behavioral health IOP program. I last saw the patient 2 weeks ago and at that time she was started on low-dose Lexapro. She states that she has been tolerating the medication well and has experienced no side effects from it. She feels that her mood is about the same in terms of still being depressed with low motivation. She feels that she is having less frequent thoughts that she would not care if she . But she still does have passive thoughts of sometimes. She denies any suicidal ideation, plan for suicide, homicidal ideation, hallucinations or delusions. Current Psychiatric Medications: [] Strattera 40 mg p.o. twice daily; Lexapro 5 mg p.o. daily (x2 weeks). Mental Status Examination: [] The patient is a 20-year-old female who is seen wearing a mask due to the pandemic and is casually dressed and groomed with good hygiene. She has no psychomotor agitation or retardation. Eye contact is good and speech is normal rate and rhythm and fluent with no pressure. Mood is depressed. Affect is constricted. Thought process is goal-directed and organized. Thought content: There is evidence of passive thoughts of that are occurring much less often. There is no evidence of suicidal ideation, homicidal ideation, plan for suicide, hallucinations or delusions. Judgment is intact. Insight is limited but improving. Impulsivity is moderate. Diagnoses: [] 1. Major depressive disorder, recurrent, severe without psychosis 2. Attention deficit disorder 3. Primary support and school issues Plan: [] The patient will continue the IOP program as the structure, support, education and group therapy will hopefully prevent worsening of the patient's symptoms. She felt safe during the interview and if it anytime she does not feel safe she will let us know or go to the emergency room. The risk, options, possible complications and side effects of the medications were again discussed with the patient and she understands and accepts these. She will continue her Strattera as prescribed. She agrees to increase her Lexapro to 10 mg p.o. daily and a prescription was sent in for this. I will see the patient in follow-up in 1 to 2 weeks and she will continue to follow-up with her outpatient medical and psychiatric providers.
--- NOTE | 2021-03-22 09:04 | BH.SGPN.GN ---
Behaviors/Verbalizations/Mental Status: []Client alert and oriented, casually dressed and groomed. Eye contact good. Motor activity appropriate. Speech within normal limits. Affect congruent, mood anxious. Thoughts linear, logical, no signs of hallucinations or delusions. Reviewed client?s symptom tracker, no risk for suicidal ideation, plan, or intent as of 03/22/21. Client Response/Progress/Benefit: []Client responded well to session, attentive and providing supportive feedback. Client reports feeling concerned this morning and shared this is due to her father losing his job the previous day. Client stated feeling bad because her father had loved his job and she is worried about her family?s ability to cope with this. Discussed expecting her father to be angry upon returning home from work that day but instead he appeared to be sad and disappointed which client had not expected. Shared giving her dad a hug and noted that he had opened up and spoke with client about his emotions as a result which is progress in their communication. 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 Appeared to benefit from reflecting on her growth and improved communication with her father. Client reports on her daily symptom tracker that her mood has generally been the same but functioning worse due to recent stressors impacting anxiety levels. Will continue IOP tx to promote mood stability and further improve emotional regulation skills and communication with supports. Narrative Note: []
--- NOTE | 2021-03-22 10:12 | BH.SGPN.GN ---
Behaviors/Verbalizations/Mental Status: []Client alert and oriented, neatly dressed and groomed. Eye contact good. Motor activity appropriate. Speech within normal limits. Affect constricted, mood irritable. Thoughts linear, logical, no signs of hallucinations or delusions. Client Response/Progress/Benefit: []Pt was a passive participant in group discussion and activity. Attentive during psychoeducation on coping skills. Pt along with peers worked together to identify unhealthy coping skills such as; avoidance, substance use, and trying to take care of issues alone. Group was able to identify why people use unhealthy coping skills such as; easy, comfortable, work in the short-term, habit, or take less energy. Pt was quiet during discussion and pt has been more passive in recent sessions. This could be a barrier to further progress. Benefited from increased understanding of unhealthy coping skills and the need for developing healthy internal coping skills to manage mental health sx. Pt will continue in IOP to prevent decompensation, improve daily functioning, and increase application of healthy coping skills. Narrative Note: []
--- NOTE | 2021-03-22 11:12 | BH.SGPN.GN ---
Behaviors/Verbalizations/Mental Status: []Client alert and oriented, casual dress, hygiene tended to. Eye contact fair. Motor activity appropriate. Speech within normal limits. Affect constricted, mood dysthymic. Thoughts linear, logical, no signs of hallucinations or delusions. Client Response/Progress/Benefit: []Client responded well to session, actively listening and providing examples. Client stated she needs to work on building her internal coping skills because she tends to rely more on external supports. Group discussed the different categories of coping skills which included distraction, emotional release, grounding, self-love, and thought challenging. Client participated in creating a coping skills ?menu? from the five categories of coping skills. Client's coping skill menu included: be creative, singing, belly breathing, drink water and identify daily GLAD (grateful, learned, accomplishment and delight). Appeared to benefit from increasing repertoire of healthy coping skills. Will continue tx to increase healthy coping, challenge distorted thought patterns and prevent decompensation. Narrative Note: []
--- NOTE | 2021-03-23 09:04 | BH.SGPN.GN ---
Behaviors/Verbalizations/Mental Status: []Client alert and oriented, casually dressed and groomed. Eye contact good. Motor activity appropriate. Speech within normal limits. Affect congruent, mood anxious, euthymic. Thoughts linear, logical, no signs of hallucinations or delusions. Reviewed client?s symptom tracker, no risk for suicidal ideation, plan, or intent as of 03/23/21 Client Response/Progress/Benefit: []Client receptive to session, attentive and an active participant throughout. Client reports feeling ?optimistic this morning. Attributes this to improvements in her communication and relationship with her parents. Shared that they have been able to have conversations without it resulting in an argument and that she was able to discuss boundaries with her mother. Shared that this went well and that so far she has felt her mother has been receptive of client not wanting to go in depth when discussing her mental health or the IOP program. Went on to note plans to spend the day with her father tomorrow to celebrate ?s Day. Shared feeling positive about the progress in her relationship with her parents but is anxious that this will not be sustainable. Explained that in the past she has experienced her parents not maintaining agreed upon changes and expectations. Receptive of support provided by group and appeared to benefit from discussion on the importance of ongoing communication to maintain these gains. Appeared to benefit from reflecting upon areas of progress and skills that have been helpful so far. Recommended continued IOP tx to further promote healthy communication, further improve mood stability, as well as prevent decompensation. Narrative Note: []
--- NOTE | 2021-03-23 10:10 | BH.SGPN.GN ---
Behaviors/Verbalizations/Mental Status: []Client alert and oriented, well dressed and groomed. Eye contact fair. Motor activity appropriate. Speech within normal limits. Affect congruent, mood euthymic. Thoughts linear, logical, no signs of hallucinations or delusions. Client Response/Progress/Benefit: []Client responded well to session AEB contributing to session and listening attentively to others. Client connected with the topic of resilience and provided a definition and example of resilience as a member of the . Group was primarily education based, with client contributing to small group discussion on traits that promote resilience. Clients? group discussed making connections, accepting change, and moving toward goals as strategies to increase resilience. Client appeared to benefit from increasing awareness of strategies to increase personal resilience. Progress noted in client providing insights during group discussion. Will continue IOP treatment to improve daily functioning and increase depression management skills. Narrative Note: []
--- NOTE | 2021-03-23 11:12 | BH.SGPN.GN ---
Behaviors/Verbalizations/Mental Status: []Client alert and oriented, casually dressed and groomed. Eye contact good. Motor activity appropriate. Speech within normal limits. Affect congruent, mood euthymic. Thoughts linear, logical, no signs of hallucinations or delusions. Client Response/Progress/Benefit: []Client responded well to session AEB completing the resilience worksheet provided. Client participated in the discussion of how each resiliency component can help increase personal resiliency and worked cooperatively with group to identify strategies to enhance each of the components discussed. Client reported she feels she is doing well with implementing the resilience component of ?making connections? and ?accepting that change is a part of living.? Client reports she wants to improve the personal resilience component of ?taking decisive action.? Client reports she sometimes likes change ?too much? and wants to work on sticking with goals. Client seemed to benefit from discussing strategies for improving personal resilience and identifying resilience traits client already possesses. Will continue IOP tx to increase emotional regulation skills, reduce negative thinking, and improve daily functioning. Narrative Note: []
--- NOTE | 2021-03-25 13:55 | BH.COMM ---
Communication Note - Communication with Client Communication Note: Pt scheduled for IOP group and individual counseling on this date however called to cancel. Will follow-up next week as scheduled.
--- NOTE | 2021-03-28 09:05 | BH.SGPN.GN ---
Behaviors/Verbalizations/Mental Status: [] Eye contact is good. Motor activity is appropriate. Appearance is casual. Speech is Appropriate. Mood is depressed. Affect is flat. Thoughts are linear and logical. No evidence of psychosis. Reviewed daily check in sheet and pt reports 1/5 for suicidal thoughts and 0/5 for intent. Client Response/Progress/Benefit: [] Pt participated at times during group discussion on improving sleep. Emotion for today is frustrated. Daily symptom tracker notes 3/5 for depression and 2/5 for anxiety. Mental health win was I made it through the weekend. States It was a mentally draining weekend. She had a discussion regarding boundaries with her parents which she believed went well and was productive. She was optimistic until 2 days later she felt that her parents broke all the boundaries. She talked at length regarding the events surround the conflict with parents over the weekend. Frustrated and feels stuck. Unsure of her future which leads to depression and indecisiveness. 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 Minimal progress since last session. Benefited from group support, encouragement, and feedback. Will continue in IOP to prevent decompensation, increase healthy coping, and improve functioning. Narrative Note: []
--- NOTE | 2021-03-28 09:58 | BH.SGPN.GN ---
Behaviors/Verbalizations/Mental Status: []Client alert and oriented, casually dressed and groomed. Eye contact fair. Motor activity appropriate. Speech within normal limits. Affect flat, mood depressed. Thoughts linear, logical, no signs of hallucinations or delusions. Client Response/Progress/Benefit: []Client responded well to session AEB client contributing to group discussion and listening attentively to others. Client discussed being unable to help others without self-care. Client contributed to small group discussion regarding debunking the myths of self-care. Client?s group debunked the myths that self-care is selfish, has to be earned, is too expensive, and is not always pampering. Client?s group discussed the importance of self-care to functioning, needing to earn self-care as a vicious cycle, getting creative with inexpensive options, and making self a priority as self care. Appeared to benefit from discussion of the importance of self-care and options. Progress noted in client providing insight in group discussion. Will continue IOP treatment to increase healthy boundary setting and improve use of self-care. Narrative Note: []
--- NOTE | 2021-03-28 11:01 | BH.SGPN.GN ---
Behaviors/Verbalizations/Mental Status: []Client alert and oriented, casually dressed and groomed. Eye contact good. Motor activity appropriate. Speech within normal limits. Affect constricted, mood dysthymic, agitated. Thoughts linear, logical, no signs of hallucinations or delusions. Client Response/Progress/Benefit: []Client engaged participant AEB taking notes and providing input when prompted during discussion; however, continues to remain mostly passive in participation. Attentive throughout group discussion on the various areas of self-care, benefits, and types of self-care activities for each area. Client completed worksheet which identified current self-care practices and what self-care activities client wants to start using. Client noted she is doing best in the areas of financial and psychological self-care though continues to struggle at times with these. Discussed that she would like to begin improving in spiritual self-care. Identified that she could begin doing so by beginning a regular yoga practice. Noted this would help to ground her and give her something healthy to focus on. Appeared to benefit from completing the self-care evaluation and gaining insights into current self-care practices, as well as identifying areas in which she would like to improve upon. Will continue IOP tx to continue to promote mood stability, continue to improve communication and healthy conflict resolution with supports, as well as prevent decompensation. Narrative Note: []
--- NOTE | 2021-03-29 10:05 | BH.SGPN.GN ---
Behaviors/Verbalizations/Mental Status: []Eye contact is good. Motor activity is appropriate. Appearance is neat. Speech is Appropriate. Mood is euthymic. Affect is congruent. Thoughts are linear and logical. No evidence of psychosis. Client Response/Progress/Benefit: []Pt was an active participant in group discussion AEB taking notes and providing input throughout. Attentive during psychoeducation reviewing internal and external obstacles and provided examples throughout. Participated in the reflection activity in which clients lina pictures depicting their current and desired reality and shared with the groups. Pt stated current reality is [place] but feels stuck because has unrealistic expectations of where she wants to be in life. Pt reported desired reality is to stop avoiding her problems and give herself time to choose a realistic route in life. Benefited from group by increasing current awareness and expectations for progress. Pt to continue IOP to stabilize moods, improve daily functioning and prevent decompensation. Narrative Note: []
--- NOTE | 2021-03-29 11:00 | BH.MDN_ITS ---
Multi-Disciplinary Note - Note 60-min Individual Time Started:: 09:01 Date: 03/29/21 Purpose of session/treatment goals addressed:: To review treatment progress and discuss areas of continued focus. Another goal was to address recent stressors. Eye Contact:: Good Motor Activity:: Appropriate Appearance:: Casual Speech:: Appropriate Mood:: Anxious, Dysthymic Affect:: Congruent Thoughts:: Linear, Logical, No evidence of hallucinations/delusions noted Staff Interventions:: thought challenging, motivational interviewing, psychoeducation on: - decisional balance, reviewed DSM-5, goal setting - for remaining time in tx, other - discussed benefits of having a family session Client Response:: Client responded well to session, open to meeting with therapist and engaged throughout. Client shared she feels ?better than I did yes terday? today, explaining that she took time to practice self-care and small goals such as cleaning her room. Noted this improved her mood after struggling the past few days. Client noted that she had been feeling down and attempted to change her environment by watching t.v. with her parents, however felt ?ambushed? instead. Shared wanting to just spend time with them but they had begun asking questions about her mental health that she did not want to answer. Noted struggling to maintain this boundary and felt obligated to answer their questions, which ultimately resulted in increased conflict and client feeling upset. Receptive of reviewing strategies for communicating boundaries and expectations with her parents. Client acknowledged that her parents may not be able to ever fully understand he mental health needs and that this is okay, they can still be supports in other ways. Client shared wanting to schedule a family session to further advocate for and discuss her boundaries, as well as explain her mental health and support needs with her parents. Went on to indicate feeling she has otherwise been making progress in IOP treatment and feels more capable of addressing and coping with her mental health, increased ability to use opposite action to practice self-care ? specifically the self-care needs she has been avoiding, as well as feels overall ?happier?. Client indicated wanting to focus most on improving her communication with her parents, as well as begin making decisions about whether or not she would like to return to college next year. Discussed potential options and client expressed she has been avoiding looking at the pros and cons of each as she has been anxious about doing so. Discussed importance of taking steps to begin weighing her potential options and introduced concept of decisional balance. Client receptive of a list of all her potential options to consider so as to create a decisional balance sheet to better consider the costs and benefits of each choice. Risks/Concerns:: None noted, denies any suicidal ideation, plan, or intent as of this date, 03/29/21. Progress Toward Goals/Plan:: Client continues to make progress in treatment AEB reduction in DSM-5 scores, as well as client self-report. Client indicates that she feels more positive and motivated since beginning the program, has been more actively using opposite action and small goal setting to improve overall self- care as week. Client expressed ongoing issues in communication with her parents which remains a primary stressor. Receptive of having a family session. Additional stressor is client?s uncertainty about what she wants to do next regarding pursuing higher education or entering the workforce. Able to begin processing this with this therapist. Will continue IOP tx to prevent decompensation, increase application of healthy coping skills, improve communication with supports, as well as continue to make strides towards healthy independent decision making. Time Stopped:: 10:02
--- NOTE | 2021-03-29 11:10 | BH.SGPN.GN ---
Behaviors/Verbalizations/Mental Status: [] Eye contact is good. Motor activity is appropriate. Appearance is casual. Speech is Appropriate. Mood is anxious. Affect is congruent. Thoughts are linear and logical. No evidence of psychosis. Client Response/Progress/Benefit: [] Pt was an active participant in group discussion and activity. Attentive during psychoeducation. Provided appropriate feedback and insight. Pt identified obstacles that have prevented them from obtaining desired reality being low self-esteem, unrealistic expectations, negative thinking, and fear of failure. Identified strategies to promote emotional wellness and overcome obstacles which included; challenge current expectations and make SMART goals. Benefited from identifying obstacles in pt's path to mental wellness and developing strategies to minimize the impact of these obstacles. Will continue in IOP to maintain gains, prevent decompensation, and stabilize mood. Narrative Note: []
--- NOTE | 2021-03-29 14:12 | BH.MTP_ITS ---
Treatment Plan Review Date of Admission:: 03/01/21 Date of Treatment Plan Review:: 03/30/21 Admitting Diagnoses:: 1. Major depressive disorder, recurrent, severe without psychosis. 2. Attention deficit disorder Current Diagnoses:: 1. Major depressive disorder, recurrent, severe without psychosis. 2. Attention deficit disorder Patient's Response to Treatment:: Pt?s engagement has been consistent throughout their time in [facility]. Pt is often passive, but does contribute to discussions when prompted. She completes all homework assigned, is able to connect with peers and reports actively applying healthy coping skills. Pt?s attendance is consistent, and she is complicate with medications. Pt?s overall DSM-5 scores have decreased by 27% since admission. Status of Current Problems and Symptoms: Pt's symptoms of anxiety and depression are resolving, but pt continues to report conflict with her parents which leads to reinforcing emotion dysregulation, feelings of being ?stuck?, and distorted thinking patterns. Pt reports improvement in overall self-care, though continues to report mild symptoms of depression including little interest or pleasure in doing things. Reports experiencing more ?good? days than bad at this time. Pt also continues to struggle with managing situational stressors, often becoming emotionally dysregulated as a result. For example, pt reports a recent argument with parents impacting her mood on date she completed the DSM-5 for review. This may have impacted overall scores as she also indicated higher scores on daily symptom compared to recent previous reports. Pt also continues to have stressors regarding plans to return to school and pt is working on setting firm boundaries with her parents. She is open to the idea of a family session. Problem #1 Problem Name:: Reduce depression and improve motivation and engagement in activities Status of Goals:: Objective 1- complete with ongoing work encouraged. Pt can identify distortions which reinforce her depressive symptoms after experiencing these, however struggles to identify the distortion if stressed or already emotionally dysregulated. This impeded her ability to effectively apply in the moment distress tolerance and thought challenge skills. However, does well to later reflect and use thought challenging and calming coping skills to reduce severity and duration of symptoms. Objective 2- complete with ongoing work encouraged. Pt?s DSM-5 scores for depression decreased by 14% since admission. Pt can identify the importance of self-care and has been challenging herself to use opposite action to engage in the more difficult areas of self-care; however, continues to struggle with motivation and consistency, as well as labeling herself by her depression. Team Recommendations:: Treatment team recommends pt continue with current goals, specifically focusing on improving boundary setting and communication with family. Encouraged to have a family session. Pt also encourage to continue with self-care routine. Problem #2 Problem Name:: Reduce anxiety symptoms and rumination impacting functioning Status of Goals:: Objective 1- complete with continued tx recommended. Pt?s able to identify ?what if? and absolute thoughts which reinforce ruminating thoughts and fears impacting her ability to make decisions about her future or cope with PTSD sx. Pt at times continues to struggle in this area but does report some improvement. Objective 2 ? complete with continued tx recommended. DSM-5 scores for anxiety have reduced by 17% since intake. Pt?s anxiety symptoms are still within the mild range for severity and pt did not decompensate. Pt reports utilizing thought challenging, talking to supports, self-care, and affirmations. At times struggles with avoidance of anxiety provoking situations, such as plans for pursuing education. Team Recommendations:: Treatment team recommends pt continue with current goals, specifically focusing on healthy decision making and completing a decisional balance regarding her plans for return to school. Will continue to focus on using calming skills and emotion regulation in times of increased stress.
--- NOTE | 2021-03-30 09:03 | BH.SGPN.GN ---
Behaviors/Verbalizations/Mental Status: []Client alert and oriented, casually dressed and groomed. Eye contact good. Motor activity appropriate. Speech within normal limits. Affect congruent and bright, mood euthymic. Thoughts linear, logical, no signs of hallucinations or delusions. Reviewed client?s symptom tracker, no risk for suicidal ideation, plan, or intent as of 03/30/21. Client Response/Progress/Benefit: []Client receptive to session, attentive and willing to participate throughout. Reports feeling ?content this morning. Shared that she is happy as she feels she has made significant self-care strides over the past two days. Discussed several self-care activities she has completed such as cooking, cleaning her room, and personal hygiene activities. Shared she would typically put these off but has been reminding herself of the importance of self-care in maintaining gains. Reports a current stressor as her grandpa?s health, noting that he is scheduled for heart surgery tomorrow. Discussed reminding herself of the benefits of the surgery and that this is ultimately a good thing for him, which has helped reduce her own anxieties. Shared again the positive impacts of continued self-care in further improving her ability to cope with this additional stressor. Appeared to benefit from supportive group environment and reflecting on personal progress. Recommended continued IOP tx to maintain gains, continue to promote boundary setting and healthy coping, as well as prevent decompensation. Narrative Note: []
--- NOTE | 2021-03-30 10:10 | BH.SGPN.GN ---
Behaviors/Verbalizations/Mental Status: []Client alert and oriented, casually dressed and groomed. Eye contact fair. Motor activity appropriate. Speech within normal limits. Affect congruent, mood anxious. Thoughts linear, logical, no signs of hallucinations or delusions. Client Response/Progress/Benefit: []Client responded well to session AEB client contributing to session and listening attentively to others. Client connected with the topic of perspective, discussing how having a negative perspective can lead to mental filtering and disqualifying positive aspects of life. Client participated in the photo activity, expressing feeling agitated with the family due to their living conditions at first, but was able to change her perspective and find positives and strengths. Client seemed to benefit from increased awareness of perspectives and how they can affect mental health recovery. Client identified when she gained a more positive perspective related to therapy, she was able to learn and apply more skills to help her be ?flexible in rough spots.? Will continue IOP treatment to further increase application of healthy coping skills, and increase daily functioning. Narrative Note: []
--- NOTE | 2021-03-30 11:10 | BH.SGPN.GN ---
Behaviors/Verbalizations/Mental Status: []Client alert and oriented, neatly dressed and groomed. Eye contact good. Motor activity appropriate. Speech within normal limits, quiet. Affect congruent, mood euthymic. Thoughts linear, logical, no signs of hallucinations or delusions. Client Response/Progress/Benefit: []Pt did well to remain attentive throughout session, AEB providing input throughout discussion. Did well to take notes and complete worksheet provided. Engaged as group reviewed the importance of taking a strengths-based approach in order to foster a healthier perspective and better manage mental health symptoms. Completed strengths exploration worksheet and identified personal strengths to include: ambition, humor, flexibility, and adventurousness. Pt shared group today made pt realize that ?my rut started when I quit the arts? due to fear of failure. Pt would like to recognize and use her strengths more by continuing her accomplishment log. Benefited from identifying personal strengths and strategies for enhancing use of identified strengths. Pt to continue IOP tx to further improve self-care and reinforce healthy coping skills. Narrative Note: []
--- NOTE | 2021-03-30 12:14 | PCM.BH.PN_ITS ---
Progress Note Progress Note: History of Present Illness/Interim History: [] The patient is a 20-year-old female who is seen in follow-up at the [facility] behavioral health IOP program where she is being treated for depression, anxiety and attention deficit disorder. I last saw the patient 2 weeks ago and at that time her Lexapro was increased to 10 mg daily. She is tolerating medication well has not noticed any side effects from the increased dose. She admits that she still has some conflict with his parents and is trying to work through this. She states that her mood is improved and she feels more positive lately and less depressed. She feels more motivated and has a easier time getting herself to accomplish things she wants to do during the day. Her sleep is also improving and she is getting about 8 hours a night now. She denies any suicidal ideation at all in the past 2 weeks but she says she had 1 day where she had passive thoughts of because it was a very stressful day. She denies suicidal ideation, homicidal ideation, plan for suicide, hallucinations or delusions. Current Psychiatric Medications: [] Strattera 40 mg p.o. twice daily; Lexapro 10 mg p.o. daily (x2 weeks). Mental Status Examination: [] The patient is a 20-year-old female who is seen wearing a mask due to the pandemic and is casually dressed and groomed with good hygiene. She has no psychomotor agitation or retardation. Eye contact is good and speech is normal rate and rhythm and fluent with no pressure. Mood is mildly depressed. Affect is constricted. Thought process is goal-directed and organized. Thought content: There is no evidence of passive thoughts of , suicidal ideation, homicidal ideation, plan for suicide, hallucinations or delusions. Judgment is intact. Insight is fair. Impulsivity is moderate. Diagnoses: [] 1. Major depressive disorder, recurrent, severe without psychosis (improving) 2. Attention deficit disorder 3. Primary support and school issues Plan: [] The patient will continue the IOP program at [facility] as the structure, support, education and group therapy will hopefully prevent worsening of the patient's symptoms. She felt safe during the interview and if it anytime she does not feel safe she will let us know or go to the emergency room. The risks, options, possible complications and side effects of the medications were again discussed with the patient and she understands and accepts these. No medication changes or dose changes were made today. The patient will continue to follow-up with her outpatient providers and I will see the patient in follow-up while she is in the IOP program.
--- NOTE | 2021-04-04 10:05 | BH.SGPN.GN ---
Behaviors/Verbalizations/Mental Status: []Client alert and oriented, casually dressed and groomed. Eye contact fair. Motor activity appropriate. Speech within normal limits. Affect congruent, mood euthymic. Thoughts linear, logical, no signs of hallucinations or delusions. Client Response/Progress/Benefit: []Client responded well to group session AEB contributing to group session and listening attentively to others. Client connected with the topic of anger as a secondary emotion, discussed consequences of not addressing anger, such as anger continuing to build and feeling invalidated. Client participated in anger iceberg activity, identifying shame, guilt, feeling unsafe, and not meeting expectations as triggers of her anger. Discussed being argumentative, isolating, and ruminating as her anger warning signs. Client identified the consequences of unmanaged anger as losing supports, missing opportunities, and the creation of more problems in the future. Client appeared to benefit from increased awareness of anger triggers and warning signs. Progress noted in client's vulnerability in group session. Will continue IOP treatment to increase mood stability, improve use of self-care, and increase functioning. Narrative Note: []
--- NOTE | 2021-04-04 11:04 | BH.SGPN.GN ---
Behaviors/Verbalizations/Mental Status: []Client alert and oriented, casually dressed and groomed. Eye contact good. Motor activity appropriate. Speech within normal limits. Affect congruent, mood euthymic. Thoughts linear, logical, no signs of hallucinations or delusions. Client Response/Progress/Benefit: [] Pt was engaged throughout AEB participating in discussion and taking notes. Pt did well to work with group to identify internal costs of unmanaged anger. Identified that when unmanaged, her anger has resulted in missed opportunities, avoidance, lost relationships, and maintaining the cycle. Contributed as participants worked in small groups to brainstorm healthy coping skills for better managing anger which included: reaching out to supports, journaling, taking breaks, exercise, DDD, and looking at the consequences of responding in anger. Pt appeared to benefit from identifying different techniques to manage anger as well as gaining awareness of the potential internal and external costs of anger. Pt selected setting small SMART goals, breaking down the emotion to better understand the trigger for her anger, and DDD as potential skills for better managing anger. Will continue IOP tx to continue to promote consistent application of healthy coping skills to maintain stability, continue to promote gains made and mood stability, and prevent decompensation. Narrative Note: []
--- NOTE | 2021-04-04 16:03 | BH.MDN_ITS ---
Multi-Disciplinary Note - Note 45-min Individual Time Started:: 09:05 Date: 04/04/21 Purpose of session/treatment goals addressed:: To work on goal #2 of client's tx plan. Another goal was to begin discharge planning. Eye Contact:: Good Motor Activity:: Appropriate Appearance:: Casual Speech:: Appropriate Mood:: Anxious, Dysthymic Affect:: Congruent Thoughts:: Linear, Logical, No evidence of hallucinations/delusions noted Staff Interventions:: thought challenging, motivational interviewing, discharge planning, strengths perspective, other - reviewed strategies for maintaining gains post IOP d/c Client Response:: Client responded well to session, open to meeting with therapist and engaged throughout. Client shared feeling ?okay? 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 Discussed feeling disappointed that she is not actively pursuing this passion at this time and feels she missed out by not moving to [place] to pursue this following high school. Client discussed that a friend had been helpful in challenging client?s negative thoughts and reframing at the time. Shared that she was able to remind herself that going to college and entering the were all part of a plan to receive an education while also working towards being more actively involved in theater. Discussed that if she had moved to [place] after graduation, she would have been living in the city throughout the COVID pandemic and likely would not have gained as much experience as she had hoped for. Additionally, identified that her background will make her resume more diverse and potentially more competitive. Client went on to indicate the experience further enhanced her desire to find ways to become involved in the local theater dept. 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 Discussed with therapist ways she can challenge herself to remain involved even if she is not casted. Shared being interested in lighting as well. Additionally, discussed client?s p lans following IOP tx completion. Shared [place] will be taking the next semester off from college as well. Noted this will give her a chance to save money and explore her options before deciding whether to return to school, attend another university, or choose an alternative route. Shared feeling more comfortable with not knowing what her exact next step will be and is glad she has taken time to address her mental health in the meantime. Additionally, discussed strategies for maintaining gains post IOP discharge. Scheduled a family session for next week as well to review progress and discuss with supports ways in which they can continue to aid client in managing her mental health wellness. Risks/Concerns:: No risks or concerns noted as of this date, 04/04/21. Pt is future oriented, denies any SI/HI, plan. or intent. Progress Toward Goals/Plan:: Client continues to make progress in improving her ability to challenge her negative thoughts and reach out to supports when struggling. Reports she continues to struggle with distortions but is improving on overall ability to identify and reframe distortions once recognizing them. Reports an improvement in her communication with supports, especially her parents. This has contributed to reduced irritability and depression as a result. Pt reports continuing to improve in self-care and is more actively completing small self-care goals. Reports feeling more confident in self and her decision making as well. Continues to struggle at times with reassurance seeking. Will continue IOP tx to prevent decompensation, complete a family session, as well as complete discharge planning for expected discharge date of 04/12/21. Time Stopped:: 09:51
--- NOTE | 2021-04-05 09:05 | BH.SGPN.GN ---
Behaviors/Verbalizations/Mental Status: [] Eye contact is good. Motor activity is appropriate. Appearance is neat. Speech is Appropriate. Mood is euthymic. Affect is full. Thoughts are linear and logical. No evidence of psychosis. Reviewed daily check in sheet and no reports of suicidal ideations or intent. Client Response/Progress/Benefit: [] Pt was an active participant in group discussion. Attentive. Provided appropriate feedback to peers. Emotion for today is encouraged. Mental health wins included cleaning up my desk last night. She talked about how this was a mental health win. Shared with the group that she is feeling better mental health armendariz since starting IOP. States that she has less negative days and when her mental health does impact her she is able to accept it and work through it. I'm less hard on myself for being anxious or depressed. More positive outlook. Progress noted per pt report. Benefited from group support, encouragement, and feedback. Will continue in IOP to maintain gains and prevent decompensation. Narrative Note: []
--- NOTE | 2021-04-05 10:15 | BH.SGPN.GN ---
Behaviors/Verbalizations/Mental Status: []Eye contact is good. Motor activity is appropriate. Appearance is neat. Speech is Appropriate. Mood is euthymic. Affect is congruent. Thoughts are linear and logical. No evidence of psychosis. Client Response/Progress/Benefit: []Pt was an engaged participant in group discussions. Attentive and provided insights during psychoeducation on benefits and disadvantages of anxiety and review of different types of Anxiety Disorders. Completed worksheet on identifying own physical symptoms or signs of anxiety which pt reported numerous however identified most frequent as: getting light-headed, getting hot, and increased heart rate. Pt also gained insight that she has struggled with anxiety longer than she originally thought and it was often misidentified as her ADHD. Benefited from increased awareness of physiological signs of anxiety as well as differences between 'normal' anxiety and anxiety disorder. Will continue IOP tx to promote mood stability and reinforce healthy coping skills. Narrative Note: []
--- NOTE | 2021-04-05 11:15 | BH.SGPN.GN ---
Behaviors/Verbalizations/Mental Status: []Client alert and oriented, neatly dressed and groomed. Eye contact good. Motor activity appropriate. Speech within normal limits. Affect congruent, mood euthymic. Thoughts linear, logical, no signs of hallucinations or delusions. Client Response/Progress/Benefit: []Client was an active participant in group discussion and providing good insight to peers. Reviewed safety behaviors she engages in that reinforce anxiety. Some of client?s safety behaviors include: overpreparing, reassurance seeking, and shifting to something different that is equally as notable if feeling she may fail at her current goal. Attentive during psychoeducation on mindfulness coping skills and their impact on mental health wellness. The group worked together to brainstorm anxiety reduction strategies. Client selected trying to state various items in a particular category as the mindfulness skill she will practice over the next three days. Client seemed to benefit from increased repertoire of anxiety reduction skills. Client will continue IOP tx to continue to reduce intensity of symptoms, improve overall functioning, and maintain gains made. Narrative Note: []
--- NOTE | 2021-04-06 09:05 | BH.SGPN.GN ---
Behaviors/Verbalizations/Mental Status: []Client alert and oriented, casually dressed and groomed. Eye contact good. Motor activity appropriate. Speech within normal limits. Affect congruent-laughing, mood euthymic. Thoughts linear, logical, no signs of hallucinations or delusions. Reviewed client?s symptom tracker, no risk for suicidal ideation, plan, or intent as of 04/06/21 Client Response/Progress/Benefit: C[]Client responded well to session, attentive and laughing with peers. Client states feeling happy and like my old self again this morning. Client reports she has not felt like herself in two years, and she knows that this feeling will not last forever, but client shared she is soaking in the emotion now. Client identified spending time with old friends and making new friends recently as a mental health win as client had been avoiding and isolating. Client has an upcoming family session which is causing some anxiety, but client also feels hopeful about the session. Appeared to benefit from connecting with peers and reflecting on growth. Progress noted in improved mood and application of coping skills. Will continue IOP tx to promote gains, establish aftercare, and increase emotional regulation skills. Narrative Note: []
--- NOTE | 2021-04-06 10:15 | BH.SGPN.GN ---
Behaviors/Verbalizations/Mental Status: []Client alert and oriented, casually dressed and groomed. Eye contact good. Motor activity appropriate. Speech within normal limits. Affect congruent, mood euthymic. Thoughts linear, logical, no signs of hallucinations or delusions. Client Response/Progress/Benefit: []Client receptive to session, providing input at times and listened attentively to peers. Provided input as the group brainstormed the positive and negative aspects of stress on physical and mental health. Group did well to identify the benefits of stress as well as the impact of distress on performance and mental health. Client identified top stressors such as covid, money, future career choices, family, mental health and keeping up with tracking accomplishments. Stated when has overwhelming amount of stress she will avoid and shut down. Able to connect consequences to this reaction. client seemed to benefit from increasing self-awareness of current stressors. Recommended to continue IOP tx to promote use of healthy coping skills, maintain gains and prevent decompensation.
--- NOTE | 2021-04-06 11:15 | BH.SGPN.GN ---
Behaviors/Verbalizations/Mental Status: [] Eye contact is good. Motor activity is appropriate. Appearance is casual. Speech is Appropriate. Mood is euthymic. Affect is full. Thoughts are linear and logical. No evidence of psychosis. Client Response/Progress/Benefit: [] Pt was an active participant in group discussion and activity. Attentive during psychoeducation. Provided appropriate feedback. Engaged in group experiential activity which led to interactive discussion on what it means to have control over stressors vs having no control over stressors. Participated in and provided insight during psychoeducation on the four A?s of stress (adapt, alter, avoid, accept). Pt identified stressors of figuring out my career and short-term plans and made goal to utilize the strategy of Adapting stating I need to adapt and redefine my ideas of success vs failure. She discussed how this will help her mental health. Benefited from increased awareness of stress management strategies. Will continue in IOP to maintain gains and prevent decompensation. Narrative Note: []
--- NOTE | 2021-04-11 09:04 | BH.SGPN.GN ---
Behaviors/Verbalizations/Mental Status: []Eye contact is good. Motor activity is appropriate. Appearance is casual. Speech is Appropriate. Mood is euthymic, anxious. Affect is congruent. Thoughts are linear and logical. No evidence of psychosis. Reviewed daily check in sheet and no reports of suicidal ideations or intent. Client Response/Progress/Benefit: [] Receptive of group and actively engaged throughout. Pt willing to shared as well as provided supportive feedback to fellow group members. Discussed feeling proud today as she has been able to reflect on several areas of progress since beginning the IOP program. Pt indicated progress in improved insight and emotion regulation, increased self-care, as well as healthier communication with supports. Discussed at length strategies she has been using to maintain gains and noted that taking breaks and practicing self-compassion has been most helpful. Pt reports current stressor as upcoming family session, however noted overall feels she is prepared to address her concerns/advocate for herself. Pt scheduled to discharge from O tx tomorrow and continue with outpatient treatment. Narrative Note: []
--- NOTE | 2021-04-11 10:10 | BH.SGPN.GN ---
Behaviors/Verbalizations/Mental Status: []Client alert and oriented, casually dressed and groomed. Eye contact fair. Motor activity appropriate. Speech within normal limits. Affect congruent, mood euthymic. Thoughts linear, logical, no signs of hallucinations or delusions. Client Response/Progress/Benefit: []Client responded well to session AEB contributing to session and listening attentively to others. Client connected to the topic of making change, and discussed how change is something that she looks forward to. Discussed barriers to change, including setting unrealistic expectations for herself. Client participated in the emotion pictionary activity, and was able to relate how each emotion could be experienced in relation to change. Client discussed the emotion of loneliness in change, describing leaving an unhealthy situation and missing the people associated with it. Client also participated in discussion regarding the stages of change and the feelings that accompany them. Client seemed to benefit from increasing awareness of stages of change and the range of emotions that come with making change. Progress noted in client acknowledging need for realistic expectation in group session. Will continue IOP treatment to increase setting healthy boundaries, and continue improving use of self-care to improve functioning. Narrative Note: []
--- NOTE | 2021-04-11 15:10 | BH.MDN_ITS ---
Multi-Disciplinary Note - Note 60-min Individual Time Started:: 11:34 Date: 04/11/21 Purpose of session/treatment goals addressed:: The purpose of this session was to review client's progress and strategies that will promote mood stability and maintain gains made in [facility]. Another goal was to review expectations and goals for upcoming family session. Additionally, discussed discharge recommendations and process any current stressors. Eye Contact:: Good Motor Activity:: Appropriate Appearance:: Casual Speech:: Appropriate Mood:: Euthymic, Anxious Affect:: Congruent Thoughts:: Linear, Logical, No evidence of hallucinations/delusions noted Staff Interventions:: thought challenging, motivational interviewing, discharge planning, reviewed DSM-5, other - reviewed strategies to support success, discussed expectations for upcoming family session Client Response:: Client responded well to session, open to meeting with therapist. Client reports she feels ?at peace? with her progress and where she is currently at in managing her mental health symptoms. Discussed areas in which she feels she has grown or learned the most throughout the treatment experience; this included, decreased externalization, improved self-forgiveness and self- compassion, improved boundaries and communication of boundaries, as well as reduced distorted thinking. Reviewed aftercare plan. Client discussed wanting to continue to focus on challenging unrealistic expectations of herself and others, promoting self-compassionate statements, and further improve her ability to communicate with her parents. Went on to discuss client expectations and goals for upcoming family session. Client identified that although she would like to address many past transgressions and hurt, she knows this would not be a productive session and likely have a negative impact on progress made within the relationship with her parents. Went on to describe instead wanting to better explain depression and mental health in general to her parents, discuss how she specifically experiences depression, review areas of progress, as well as identify ways in which they can continue to support her mental health needs. Discussed concerns about upcoming session and reviewed healthy communication skills. Client plans to attend [facility] aftercare weekly and outpatient counseling weekly. Risks/Concerns:: Client denies any suicidal ideations, plan, or intent as of 04/11/21. Denies any homicidal ideations. Progress Toward Goals/Plan:: Client has responded well to treatment and has made great progress while in [facility] AEB her DSM-5 score reduction of 50% since admission and self-report. Client self-reports overall improved mood, reduced severity of symptoms, improved functioning, and increased self-confidence. Client reports increased ability to manage her emotions and challenge negative thoughts, practice self-compassion, and communicate her boundaries with supports. Client still endorses mild anxiety and depression, but she reports increased confidence to manage these symptoms and has hope for the future. Client will continue with outpatient counseling and plans to participate in [facility] aftercare. Time Stopped:: 12:30
--- NOTE | 2021-04-11 15:13 | BH.DS ---
Discharge Summary - Demographics Discharge Date: 04/12/21 Presenting Problems at Admission:: The patient is a 20-year-old female with a history of ADHD who was referred to the [facility] behavioral health IOP program by a friend who previously completed the program. The patient is currently living at home with her parents after she dropped out of college where she had been a freshman majoring in media production. The patient says she took a semester off from college due to worsening symptoms of depression causing an inability to function well at school or at home. 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 Reports that acknowledging her childhood trauma has been the primary catalyst for a majority of her mental health sx and increased difficulties in functioning t baseline. Reports she has attempted to process this with her parents who have been unreceptive. The patient called the crisis line 2 weeks ago because she had suicidal ideation. She said her grades were dropping because she had stopped doing homework and attending class. At time of admission, pt endorsing sadness, crying spells, low motivation and concentration, apathy, anhedonia, hopelessness, purposelessness, and worthlessness, as well as decreased appetite. Reports increased anxiety about the future as well as poor relationships with supports. Reports current sx are impeding ability to function at baseline, complete social, occupational, and educational responsibilities Discharge Diagnoses:: Major depressive disorder, recurrent, severe without psychosis. Attention deficit disorder Reason for Discharge:: Client has made significant progress towards her treatment goals AEB her reduction in DSM-5 symptom scores, self-report of increased ability to manage depression and anxiety, and improved functioning. Client no longer meets criteria for IOP level of care and will transition to outpatient counseling. - Treatment Progress During Treatment & Response: Client has made significant strides since starting IOP as shown by her reduced symptoms, ability to challenge distortions, and overall increased ability to manage emotions and stressors. When Client started IOP, she was depressed, anxious, frustrated with her parents, and struggling to complete daily self-care tasks. Client was isolating, had emotional outbursts, reported feeling lost, and was feeling helpless. Now, Client is actively using healthy coping skills, practicing self-care, challenging distorted thoughts, and using the awareness she has gained to manage her emotions rather than react on impulse. Client contributed to group discussions, offered emotional support to peers, and consistently followed through with her goals. In individual sessions, Client was receptive to feedback, consistent with homework, and willing to challenge herself and her perspective. Client was able to get to a place where she was more openly communicating with her parents and willing to have a family support session. Client?s DSM-5 scores overall decreased by 50%. Depression decreased by 43%, anger decreased by 67%, and anxiety decreased by 50%. Issues Still to be Addressed:: Client can benefit from ongoing outpatient therapy to reinforce healthy coping skills, combat distorted thought patterns, and increase self-compassion. Client can also benefit from continuing to challenge her perspective, increase communication supports. Discharge Recommendations/Instructions:: Client plans to follow up with [facility] [id number] for medication management, first appointment is 04/13/21. Client reports her current medications are working well. Client will continue at [facility] [id number] for outpatient counseling. Client will see her therapist twice weekly. Encouraged to seek family therapy. Discharge Handout: Complete Discharge Handout with client on aftercare options and continuity of care.
--- NOTE | 2021-04-12 10:15 | BH.SGPN.GN ---
Behaviors/Verbalizations/Mental Status: []Client alert and oriented, casually dressed and groomed. Eye contact good. Motor activity appropriate. Speech within normal limits. Affect congruent, mood euthymic. Thoughts linear, logical, no signs of hallucinations or delusions. Client Response/Progress/Benefit: []Client engaged participant AEB providing contributions during group discussion and listened attentively to peers. Helped group discuss the benefits of relationships as well as the potential factors maintaining unhealthy relationships. Helped group identify characteristics that can lead to unhealthy relationships which included: poor communication, disrespect, poor emotional regulation, blaming others, and substance abuse. Pt identified she struggles with trusting others which has contributed to her having very few close relationships. Appeared to benefit from increasing awareness of the impact unhealthy relationships can have on mental health. Pt has shown progress during IOP and will discharge from IOP today. Narrative Note: []
--- NOTE | 2021-04-12 11:06 | BH.MDN ---
Multi-Disciplinary Note - Note Family Time Started:: 09:00 Date: 04/12/21 Purpose of session/treatment goals addressed:: The purpose of this session was to engage client's parent?s in treatment by providing psychoeducation on client's mental health symptoms, identify progress, and to increase support through reviewing effective communication strategies. Eye Contact:: Good Motor Activity:: Appropriate Appearance:: Neat, Casual Speech:: Appropriate Mood:: Euthymic, Anxious Affect:: Full Thoughts:: Linear, Logical, No evidence of hallucinations/delusions noted Staff Interventions:: motivational interviewing, psychoeducation on: - depression and anxiety, healthy communication skills, strengths perspective, goal setting, other - reviewed discharge plans Client Response:: Client and her parents were receptive of session, appearing to be engaged and actively contributing throughout. Discussed expectations for session and both client and her parents would like to work on ways to improve communication and increase support. Client began by providing an overview of what she has been working on in IOP treatment. Therapist provided psychoeducation regarding client?s diagnosis of depression and client provided insight into her specific symptoms. Client?s parents were receptive and reported having limited prior knowledge of mental health. Shared appreciation for the treatment program as they have seen several areas in which client has made progress. Discussed their desire to continue to support client in maintaining progress made but not knowing how to do so. Client did well to identify areas of support she feels her parents have improved upon since she has begun treatment. This included respecting her boundaries, giving space when she asks for it, and allowing client to begin making her own decisions regarding her future. Shared that she would like her parents to continue to work on maintaining client?s identified boundaries when she does not want to share right away, ask client what support she needs rather than assuming, and continue to check-in. Client?s parents were receptive and discussed expectations for client as she is living in the home which included not cursing and cleaning up around the house. Shared that they may struggle with remembering that client is now an adult and able to make her own independent decisions but indicated willingness to try. Together they came up with a plan for encouraging healthy communication and respecting each other?s needs/boundaries. Identified potential plans for continued family therapy in the future. Risks/Concerns:: Client denies any suicidal ideations, plan, or intent. No homicidal ideations. Progress Toward Goals/Plan:: Client demonstrated progress by having a support session with her parents today. Client reports this is the first time she has felt comfortable opening up about her mental health to them since returning home from college. Client continues to report reduced anxiety and depression, as well as improved use of healthy coping skills outside of [facility]. Client and parents willing to work on goals established in session to help support client and continue to promote healthy communication skills. Client will discharge from [facility] tx on this date and is scheduled to continue with outpatient therapy twice weekly at [place] [id number]. Medication management will also be continued with [place] [facility] [id number], initial appointment was yesterday. Time Stopped:: 10:22
--- NOTE | 2021-04-12 11:08 | BH.IGGP_ITS ---
Aftercare Plan - Demographics Treatment End Date:: 04/12/21 Psychiatrist:: Kelly Butcher Psychiatrist Office #:: [phone] [facility] Therapist:: Brittnee Pratt Therapist Phone #:: [phone] - Plan Details Progress/Aftercare Plan Details:: Client has made significant strides since starting IOP as shown by her reduced symptoms, ability to challenge distortions, and overall increased ability to manage emotions and stressors. When Client started IOP, she was depressed, anxious, frustrated with her parents, and struggling to complete daily self-care tasks. Client was isolating, had emotional outbursts, reported feeling lost, and was feeling helpless. Now, Client is actively using healthy coping skills, practicing self-care, challenging distorted thoughts, and using the awareness she has gained to manage her emotions rather than react on impulse. Client contributed to group discussions, offered emotional support to peers, and consistently followed through with her goals. In individual sessions, Client was receptive to feedback, consistent with homework, and willing to challenge herself and her perspective. Client was able to get to a place where she was more openly c ommunicating with her parents and willing to have a family support session. Client?s DSM-5 scores overall decreased by 50%. Depression decreased by 43%, anger decreased by 67%, and anxiety decreased by 50%. Strategies for Success:: 1. Opposite action! continue using this skill when you want to isolate, avoid, or not engage in self-care. 2. Speaking of which --- Self-care! Keep up with daily self-care and don?t forget to schedule in the smaller but equally important self-care things (you know- personal hygiene, cleaning, ect). 3. Challenge distortions. Remember that thoughts are thoughts not facts. Challenge yourself to give yourself credit rather than minimizing or self-comparison. You have come so far!. 4. Communicate with supports even though it is hard,. Even if they don?t always understand 5. Self-compassion. You are just as worthy now as any version of yourself in the past. Accomplishments don?t make you worthy, you do. You are worthy even if you are not perfect! 7. Remember setbacks happen, but that does not mean progress is erased. 8. Keep up with therapy and review your binder. 9. Keep working on small steps! You got this! - Appointments Appointments/Referrals to Other Services:: Client plans to follow up with [facility] [address] for medication management, first appointment is 04/13/21. Client reports her current medications are working well. Client will continue at [place] [facility] [address] for outpatient counseling. Client will see her therapist twice weekly. Encouraged to seek family therapy. - Medications Home Medications: Home Medications atomoxetine [Strattera] 40 mg PO BID 03/02/21 escitalopram oxalate [Lexapro] 10 mg PO DAILY 30 Days #30 tab 03/16/21
--- NOTE | 2021-04-12 11:15 | BH.SGPN.GN ---
Behaviors/Verbalizations/Mental Status: [] Client alert and oriented, casually dressed and groomed. Eye contact good. Motor activity appropriate. Speech within normal limits. Affect congruent, mood euthymic. Thoughts linear, logical, no signs of hallucinations or delusions. Client Response/Progress/Benefit: [] Client responded well to session, engaged and taking notes. Attentive during psychoeducation about characteristics of healthy, unhealthy, and abusive relationships. Pt identified that they have been working to improve trust within relationships, as well as no longer allow past experiences to influence willingness to grow and develop current as well as new relationships. Reflected upon relationship strengths which pt identified as respecting others, as well as making an effort to use honesty and transparency when communicating. Appeared to benefit from reflecting upon personal relationship strengths, as well as brainstorming strategies to build healthier relationships. Pt scheduled to discharge from [facility] tx on this date and will continue on the outpatient level. Narrative Note: []
== END 2021-04-12 12:57 | disposition home or self-care (01) ==
LOC: BHIOP 09:00
PROVIDERS: Referring Provider Psychiatry & Neurology Psychiatry; Visit Provider Psychiatry & Neurology Psychiatry
DX: F98.8 Other specified behavioral and emotional disorders with onset usually occurring in childhood and adolescence (principal); Z79.899 Other long term (current) drug therapy
CPT/HCPCS: S9480; 90834; 90837; 90847; 90853